=== PATIENT | male | born 1990 | race Caucasian/White ===

== ENCOUNTER 2016-10-16 06:59 | Emergency (ER) | payer OTHER ==
[~2016-10-16] VITALS: Ht 175.3 cm; Wt 100.0 kg
[~2016-10-16 06:59] MED LIST: ACET500T2 OR; BISA10SU2 PO; BISA10SU2 RE; COLA100C2 OR; ENOX40SY SC; LOPR50TA OR; MILKSUS OR; MULTIVIT PO; OXYC10TA12 OR; PAIN325T OR; aleve PO
[2016-10-16] MEDS ORDERED: MORPHINE 4 MG/ML 1ML SYRINGE IV ONE (07:15)
[2016-10-16] MEDS ORDERED: ONDANSETRON 4MG/2ML VIAL (J2405) IV ONE (07:15)
[2016-10-16] MEDS ORDERED: ADACEL/BOOSTRIX VACCINE (DIPHTH/PERTUSS/ACELL/TETANUS)0.5ML SYR (90715) IM ONE (08:00)
[2016-10-16] MEDS: HYDROmorphone HCL 1 MG/ML SYRINGE (J1170) IV PRN ×2 (08:31→10:06)
--- NOTE | 2016-10-16 09:17 | REP ---
CT Head without contrast HISTORY: Trauma COMPARISON: None There is no intraparenchymal hemorrhage, acute infarct, mass or midline shift. The ventricular system is normal in appearance. There is no extra cerebral collection. There is no fracture. The visualized sinuses are clear. Soft tissue swelling is present over the left orbit. IMPRESSION: There is no intracranial lesion. Signed by Steven Armstrong MD 10/16/2016 09:06 A
--- NOTE | 2016-10-16 09:54 | REP ---
MAXILLOFACIAL CT WITHOUT CONTRAST: HISTORY: Trauma. There are fractures of the bodies of the mandible. There is superior extension of the left mandibular fracture to the alveolar ridge between the first and second molar teeth. There is superior extension of the right mandibular fracture to the alveolar ridge between the second premolar and first molar teeth. There is a fracture of the angle of the left mandible. There is no dislocation. There is a fracture of the lateral wall of the left maxillary sinus. Minimal mucosal thickening is present in the right maxillary sinus. The remaining sinuses are clear. The osteomeatal units are patent. The middle and inferior nasal turbinates are partially paradoxical. There is mild deviation of the nasal septum to the right. A spur is present arising from the right side of the nasal septum. This spur abuts the right inferior nasal turbinate. The cribriform plate, medial velazquez of the orbits and optic canals are intact. The carotid canals form a segment of the posterolateral velazquez of the sphenoid sinus. Soft tissue swelling is present overlying the left maxilla and mandible. There is enlargement of the left masseter, medial pterygoid and platysma muscles consistent with edema and/or hematoma. Stranding is present in the overlying subcutaneous tissue consistent with edema. IMPRESSION: 1. Facial bone fractures as described above. 2. Sinus mucosal thickening as described above. Signed by Steven Armstrong MD 10/16/2016 09:58 A
[2016-10-16] MEDS ORDERED: CLINDAMYCIN 900 MG in APPROPRIATE DILUENT 1 EA IV ONE (10:30)
[2016-10-16 12:15] VITALS: BP 143/76
== END 2016-10-16 12:16 | disposition short-term general hospital (02) ==
LOC: EDBD 06:59 → M ED 06:59
DX: S02.609B Fracture of mandible, unspecified, initial encounter for open fracture (principal); Y04.0XXA Assault by unarmed brawl or fight, initial encounter; Y92.89 Other specified places as the place of occurrence of the external cause; Y99.9 Unspecified external cause status; Y93.9 Activity, unspecified; Z88.0 Allergy status to penicillin; Z91.018 Allergy to other foods
CPT/HCPCS: 70450; 70486; 90715; 96365; 96375; 96376; 99284; J1170; J2405